=== PATIENT | female | born 1945 | race Caucasian/White ===

== ENCOUNTER 2016-12-20 10:25 | Outpatient (CLI) | payer MEDICARE, OTHER | END 2016-12-20 10:26 | disposition home or self-care (01) | DX: K75.4 Autoimmune hepatitis (principal) ==

== ENCOUNTER 2017-01-03 07:53 | Outpatient (CLI) | payer MEDICARE, OTHER ==
--- NOTE | 2017-01-03 17:09 | Ultrasound Report ---
LIMITED ABDOMINAL ULTRASOUND: 01/03/2017 CLINICAL HISTORY: A 71-year-old female with autoimmune hepatitis and abdominal pain. TECHNIQUE: Real-time scanning was performed with medical sales representative static images obtained. FINDINGS: The liver appears reduced in size with the length of 11.5 cm. Liver parenchymal pattern is coarsened. This type of parenchymal pattern can be seen with cirrhosis or hepatitis. The portal vein showed normal hepatopetal flow. The gallbladder demonstrated no significant wall thickening. There are some small calculi within the neck of the gallbladder. These appear to be mobile with shadowing. They measure 1 to 3 mm in diameter . The common bile duct is 2.3 mm and normal in size. The right kidney measures 10 cm in length without pyelocaliceal system dilatation. A benign cyst is noted extending from the anterior half of the lower part of the right kidney measuring 1.2 cm. IMPRESSION: 1. ABNORMAL LIVER IS NOTED WITH REDUCED SIZE AND A PARENCHYMAL PATTERN CONSISTENT WITH CIRRHOSIS OR H EPATITIS. 2. CHOLELITHIASIS IS NOTED WITH SEVERAL SMALL MOBILE CALCULI NOTED IN THE NECK OF THE GALLBLADDER. 3. AN 1.2 CM CYST IS NOTED IN THE RIGHT KIDNEY. JOB #: [id number] EXT JOB #:[id number]
== END 2017-01-03 07:54 | disposition home or self-care (01) ==
LOC: DI 07:53
PROVIDERS: ATTEND Internal Medicine
DX: K75.4 Autoimmune hepatitis (principal); K80.20 Calculus of gallbladder without cholecystitis without obstruction; N28.1 Cyst of kidney, acquired
CPT/HCPCS: 76705

== ENCOUNTER 2018-09-17 08:00 | Outpatient (CLI) | payer MEDICARE, OTHER ==
[2018-09-17] MEDS ORDERED: GADOBUTROL 10 MMOL/10 ML VIAL IVP ONE ×2 (11:47)
--- NOTE | 2018-09-17 14:11 | MRI Report ---
Reason: VERTIGO, FACIAL PARESTHESIA, VISION CHANGES, TINNI Procedure Date: 09/17/2018 Accession Number: [id number] / [id number] Procedure: MRI - Brain W/WO CPT Code: FULL RESULT: EXAM: MRI BRAIN AND INTERNAL AUDITORY CANAL (IAC),WITHOUT AND WITH CONTRAST. EXAM DATE: 09/17/2018 11:38 AM. CLINICAL HISTORY: 73-year-old female. VERTIGO, FACIAL PARESTHESIA, VISION CHANGES, TINNITUS. COMPARISON: None. TECHNIQUE: Multiplanar, multisequence T1-weighted and fluid-sensitive MRI sequences of the brain and IACs were performed. Other: None. IV Contrast: 9 ML Gadavist. FINDINGS: Brain Volume: Normal for age. Parenchyma/Dura: No acute hemorrhage, mass, or acute infarct. Scattered T2/FLAIR hyperintense periventricular, deep, and subcortical white matter lesions within cerebral hemispheres bilaterally. No abnormal enhancement. No parenchymal foci susceptibility artifact Internal Auditory Canals (IACs): Normal. No cranial nerve lesion or inflammatory process identified. The inner ear structure are symmetric and unremarkable. Ventricles/Cisterns: No hydrocephalus. No abnormal extra-axial fluid collection or hemorrhage. Orbits: Symmetric and unremarkable. Sella Turcica: The pituitary gland, cavernous sinuses, suprasellar cistern and optic chiasm are unremarkable. Vasculature: Normal signal flow void is seen in the major arterial structures at the skull base. The dural sinuses are patent and enhance normally. Sinuses: Small mucus retention cyst/polyp right maxillary sinus. The remaining paranasal sinuses are clear. Bones: No focal pathologic appearing marrow signal changes. Other: None. IMPRESSION: 1. No evidence of retrocochlear pathology. The cerebellopontine angles bilaterally, the internal auditory canals bilaterally, the cochleas bilaterally, and the vestibular apparatuses bilaterally are unremarkable. No associated abnormal enhancement. 2. No MRI evidence of acute intracranial abnormality. Specifically, no evidence of acute or subacute infarct, acute intracranial hemorrhage, mass, midline shift, or hydrocephalus. No abnormal intracranial enhancement. 3. Scattered T2/FLAIR hyperintense periventricular, deep, and subcortical white matter lesions within cerebral hemispheres bilaterally. These lesions are nonspecific, and can be seen with the entire gamut of white matter conditions, commonly as sequela of chronic microangiopathy. RADIA
== END 2018-09-17 08:01 | disposition home or self-care (01) ==
LOC: LAB 08:00
PROVIDERS: ATTEND Physician Assistant
DX: R42 Dizziness and giddiness (principal); H53.9 Unspecified visual disturbance; H93.19 Tinnitus, unspecified ear; R20.2 Paresthesia of skin; R90.89 Other abnormal findings on diagnostic imaging of central nervous system; K75.4 Autoimmune hepatitis; K80.20 Calculus of gallbladder without cholecystitis without obstruction
CPT/HCPCS: 36415; 70553; 82565

== ENCOUNTER 2018-10-03 09:18 | Outpatient (CLI) | payer MEDICARE, OTHER | END 2018-10-03 09:19 | disposition home or self-care (01) | LOC: DI 09:18 | PROVIDERS: ATTEND Specialist | DX: K75.4 Autoimmune hepatitis (principal); R42 Dizziness and giddiness; I10 Essential (primary) hypertension; R10.11 Right upper quadrant pain | CPT/HCPCS: 93306 ==

== ENCOUNTER 2019-02-26 07:37 | Outpatient (CLI) | payer MEDICARE, OTHER ==
[2019-02-26 09:09] LABS: CREATININE 0.9 mg/dL (0.4-1.0)
[2019-02-26] MEDS ORDERED: IOVERSOL 320 100 ML VIAL IVP ONE ×2 (09:46→14:47)
--- NOTE | 2019-02-26 11:25 | CT Report ---
Reason: AUTOIMMUNE HEPATITIS Procedure Date: 02/26/2019 Accession Number: [id number] / [id number] Procedure: CT - Abdomen/Pelvis W CPT Code: FULL RESULT: EXAM: CT ABDOMEN AND PELVIS EXAM DATE: 02/26/2019 09:49 AM. CLINICAL HISTORY: Autoimmune hepatitis. COMPARISONS: ABDOMEN/PELVIS W/ 10/11/2015 2:14 PM. TECHNIQUE: Routine helical CT imaging was performed through the abdomen and pelvis. IV contrast: OPTIRAY 320 100 mL. Enteric contrast: No. Reconstructions: Coronal and sagittal. In accordance with CT protocol optimization, one or more of the following dose reduction techniques were utilized for this exam: automated exposure control, adjustment of mA and/or KV based on patient size, or use of iterative reconstructive technique. FINDINGS: Lung Bases: Unremarkable. Liver: Liver contour is mildly lobulated. Gallbladder/Bile Ducts: Cholelithiasis without cholecystitis. Spleen: Subjectively, splenic volume is top normal, 11.1 x 7.6 cm as seen coronally on image 36 series 5. Pancreas: Normal. Adrenal Glands: Normal. Kidneys: Normal. No masses or hydronephrosis. Peritoneal Cavity/Bowel: There is no bowel obstruction, free fluid or free air. There is no lymphadenopathy by size criteria. There is extensive diverticulosis predominantly in the sigmoid colonic distribution. The appendix is well visualized and normal, retrocecal location. Pelvic Organs: Normal. The bladder and visualized pelvic organs are within normal limits. Vasculature: Atherosclerosis without an abdominal aortic aneurysm. Bones: Superior endplate fracture/Schmorl's node at T11. No aggressive osseous lesions. Other: None. IMPRESSION: Mildly nodular-appearing liver contour and a top normal splenic size. RADIA
[2019-02-26] MEDS ORDERED: IOVERSOL 320 50 ML VIAL PO ONE (14:47)
== END 2019-02-26 07:38 | disposition home or self-care (01) ==
LOC: DI 07:37
PROVIDERS: ATTEND Specialist
DX: K75.4 Autoimmune hepatitis (principal)
CPT/HCPCS: 36415; 74177; 82565; Q9967

== ENCOUNTER 2020-12-05 09:32 | Emergency (ER) | payer MEDICARE, OTHER ==
--- OUTSIDE RECORDS SUMMARY | 2020-12-05 10:19 | EXTERNAL MEDICAL SUMMARY RPT | Continuity of Care Document ---
:1945 Demographics Phone Unavailable Preferred Language Unknown Marital Status Unknown Bahai Affiliation Unknown Race Unknown Ethnic Group Unknown Author Organization [facility] Address [address] [phone] Phone Social History date description facility [phone]
[2020-12-05] MEDS ORDERED: HYDROmorphone 1 MG/ML CARPUJECT IVP STA ×2 (10:20→13:21)
[2020-12-05] MEDS ORDERED: KETOROLAC 15 MG/ML VIAL IVP STA (10:20)
--- NOTE | 2020-12-05 10:22 | ED Physician Documentation ---
PD HPI BACK PAIN - Stated complaint Stated Complaint: RT SIDE BACK PX - Chief complaint Chief Complaint: Back Pain - History obtained from History obtained from: Patient, Family - History of Present Illness Timing - onset: How many weeks ago (several) Timing - duration: Weeks Timing - details: Gradual onset, Still present (worse the past week), Waxing and waning Location: Mid, Lower, Right Quality: Pain, Aching Associated symptoms: Other (denies rash during this). No: Fever, Weakness, Numbness Contributing factors: Trauma (she says she had a slight slip and near fall 3-4 weeks ago but did not feel pain with that necessarily.). No: Lifting, Twisting Similar symptoms before: Has not had sx before Recently seen: Not recently seen Review of Systems Constitutional: denies: Fever, Chills Nose: denies: Rhinorrhea / runny nose, Congestion Throat: denies: Sore throat Respiratory: denies: Cough GI: reports: Abdominal Pain (some in RUQ area, not related to eating. Has history of immune hepatitis, but that has been dormant for several years.). denies: Nausea, Vomiting Skin: denies: Rash, Lesions Musculoskeletal: reports: Back pain. denies: Neck pain Neurologic: denies: Focal weakness, Numbness PD PAST MEDICAL HISTORY - Past Medical History Cardiovascular: Hypertension Respiratory: None Neuro: None Endocrine/Autoimmune: None GI: Hepatitis (immune related, and has been dormant for few years. No recent eval by GI. ) - Past Surgical History Past Surgical History: Yes Ortho: ACL reconstruction - Present Medications Home Medications: Ambulatory Orders Medication Instructions Recorded Confirmed azaTHIOprine [Azathioprine] 100 mg PO DAILY 04/10/16 12/05/20 Morphine Ir [Ms Ir] 15 mg PO Q8H PRN #20 tablet 12/05/20 dexAMETHasone [Decadron] 4 mg PO DAILY #7 tablet 12/05/20 traZODone [Desyrel] 50 mg PO QPM 12/05/20 12/05/20 - Allergies Allergies/Adverse Reactions: Allergies Allergy/AdvReac Type Severity Reaction Status Date / Time No Known Drug Allergies Allergy Verified 12/05/20 09:45 - Social History Does the pt smoke?: No Smoking Status: Never smoker Does the pt drink ETOH?: No Does the pt have substance abuse?: No - POLST Patient has POLST: No PD ED PE NORMAL - Vitals Vital signs reviewed: Yes - General General: Alert and oriented X 3, Well developed/nourished, Other (seems uncomfortable with leaning forward. ) - Neck Neck: Supple, no meningeal sign, No bony TTP, No adenopathy - Cardiac Cardiac: RRR, No murmur - Respiratory Respiratory: Clear bilaterally - Abdomen Abdomen: Normal bowel sounds, Soft, Non distended, Other (some tenderness RUQ in liver area.) - Back Back: No CVA TTP - Derm Derm: Normal color, Warm and dry - Extremities Extremities: No tenderness to palpate, Normal ROM s pain, No edema, No calf tenderness / cord - Neuro Neuro: Alert and oriented X 3, No motor deficit, Normal speech Results - Vitals Vitals: Vital Signs - 24 hr 12/05/20 12/05/20 12/05/20 09:42 11:50 12:45 Temperature 36.6 C Heart Rate 64 60 60 Respiratory 19 20 20 Rate Blood Pressure 146/69 H 142/62 H 168/84 H O2 Saturation 99 100 100 12/05/20 14:34 Temperature 36.5 C Heart Rate 58 L Respiratory 19 Rate Blood Pressure 168/77 H O2 Saturation 100 Oxygen O2 Source Room air - Labs Labs: Laboratory Tests 12/05/20 12/05/20 12/05/20 10:20 10:20 11:46 WBC 3.2 L RBC 3.14 L Hgb 10.7 L Hct 31.1 L MCV 99.0 MCH 34.1 H MCHC 34.4 RDW 14.4 Plt Count 189 MPV 9.5 Neut # (Auto) 2.0 Lymph # (Auto) 0.8 L [place] # (Auto) 0.2 Eos # (Auto) 0.1 Baso # (Auto) 0.0 Absolute Nucleated RBC 0.00 Nucleated RBC % 0.0 Sodium 141 Potassium 4.0 Chloride 111 Carbon Dioxide 23 Anion Gap 7.0 BUN 18 Creatinine 0.9 Estimated GFR (MDRD) 61 L Glucose 96 Calcium 9.8 Total Bilirubin 0.7 AST 30 ALT 14 Alkaline Phosphatase 117 Total Protein 6.9 Albumin 3.7 Globulin 3.2 Albumin/Globulin Ratio 1.2 Lipase 35 Urine Color DARK YELLOW Urine Clarity CLEAR Urine pH 6.0 Ur Specific [place] 1.025 Urine Protein NEGATIVE Urine Glucose (UA) NEGATIVE Urine Ketones TRACE Urine Occult Blood NEGATIVE Urine Nitrite NEGATIVE Urine Bilirubin NEGATIVE Urine Urobilinogen 1 (NORMAL) Ur Leukocyte Esterase NEGATIVE Ur Microscopic Review NOT INDICATED Urine Culture Comments NOT INDICATED - Rads (name of study) abd/pelvic CT Radiology: Prelim report reviewed (lung mets/mass, liver mets, spinous mets. No fractures. ), See rad report PD MEDICAL DECISION MAKING - ED course Complexity details: reviewed results (CT showing spine mets, liver mets and lung mets/nodes, with one lung spot a bit larger that might be primary. ), considered differential (she says she might have had a fall 3-4 weeks ago but does not remember back hurting with that. Has had pain with movement. No LE neuro symptoms. There is some abd tenderness as well. So will get CT to eval spine as well as abd cavity/kidneys/etc.), d/w patient, d/w family, d/w life skills consultant (Initial talk with radiologist about the mets findings and we discussed adding chest CT to better evaluate for primary and include breasts too, as could be possible source. He felt it okay to do chest with contrast right now given the patient Cr/GFR.) ED course: ordered the Chest CT after discussion with reporting Radiologist, who felt this was okay at this point. However, in house Radiologist Dr Bucio, felt it would not be advised to give second dye dose in same day. So deferred the CT. The patient and family understood the reasoning and were okay with the change of plan (I had already talked about adding the chest CT with them). Departure - Departure Disposition: 01 Home, Self Care Clinical Impression: Metastatic cancer to spine Lower back pain Qualifiers: Chronicity: acute Back pain laterality: unspecified Sciatica presence: without sciatica Qualified Code(s): M54.5 - Low back pain Condition: Stable Record reviewed to determine appropriate education?: Yes Instructions: ED Low Back Pain Injury Follow-Up: Eric Huertas MD [Primary Care Provider] - Prescriptions: dexAMETHasone [Decadron] 4 mg PO DAILY #7 tablet Morphine Ir [Ms Ir] 15 mg PO Q8H PRN #20 tablet PRN Reason: Pain Comments: The CT scan was showing a likely lung tumor with metastatic lesions in the lower lung, liver and spine. Your back pain seems to be coming from bone metastases. There are no fractures seen. I would suggest some anti-inflammatory of Decadron daily for the next week. Add Tylenol 500 mg 4 times a day for the next week. Your current liver function tests are normal and this should be okay. To this add morphine tablet half to 1 tablet every 8 hours if needed for pain. Follow-up with Dr. Huertas your primary care for referral presumably to oncology for further work-up and evaluation of the tumor and lesions. Discharge Date/Time: 12/05/20 14:43
[2020-12-05] MEDS ORDERED: IOPAMIDOL-300 100 ML VIAL ONE (10:26)
[2020-12-05 10:40] LABS: BASOPHILS % (AUTO) 1.2 %; EOSINOPHILS # (AUTO) 0.1 10^3/uL (0.0-0.7); EOSINOPHILS % (AUTO) 1.9 %; HCT - HEMATOCRIT 31.1 % (37.0-47.0); HGB - HEMOGLOBIN 10.7 g/dL (12.0-16.0); LYMPHOCYTES # (AUTO) 0.8 10^3/uL (1.5-3.5); LYMPHOCYTES % (AUTO) 25.9 %; MEAN CORPUSCULAR HEMOGLOBIN 34.1 pg (27.0-31.0); MEAN CORPUSCULAR HGB CONC 34.4 g/dL (32.0-36.0); MEAN PLATELET VOLUME 9.5 fL (7.9-10.8); MONOCYTES # (AUTO) 0.2 10^3/uL (0.0-1.0); MONOCYTES % (AUTO) 7.5 %; NEUTROPHILS % (AUTO) 63.2 %; PLT - PLATELET COUNT 189 10^3/uL (130-450); RED BLOOD COUNT 3.14 10^6/uL (4.20-5.40); RED CELL DISTRIBUTION WIDTH 14.4 % (12.0-15.0); WHITE BLOOD COUNT 3.2 x10^3/uL (4.8-10.8)
[2020-12-05 10:56] LABS: ALBUMIN 3.7 g/dL (3.2-5.5); ALBUMIN/GLOBULIN RATIO 1.2 (1.0-2.2); BILIRUBIN,TOTAL 0.7 mg/dL (0.2-1.0); CALCIUM 9.8 mg/dL (8.5-10.3); CREATININE 0.9 mg/dL (0.4-1.0); TOTAL PROTEIN 6.9 g/dL (6.7-8.2)
[2020-12-05 11:54] LABS: BILIRUBIN,URINE NEGATIVE (NEGATIVE); GLUCOSE, URINE (UA) NEGATIVE (NEGATIVE); KETONES,URINE (UA) TRACE mg/dL (NEGATIVE); LEUKOCYTE ESTERASE, URINE NEGATIVE (NEGATIVE); NITRITE,URINE NEGATIVE (NEGATIVE); OCCULT BLOOD,URINE NEGATIVE (NEGATIVE); PROTEIN,URINE NEGATIVE (NEGATIVE); UROBILINOGEN,URINE 1 (NORMAL) E.U./dL (NORMAL)
[2020-12-05 11:58] LABS: CLARITY,URINE CLEAR (CLEAR)
--- NOTE | 2020-12-05 13:01 | CT Report ---
PROCEDURE: Abdomen/Pelvis W INDICATIONS: Abdominal pain, acute, nonlocalized CONTRAST: IV CONTRAST: Isovue 300 ml: 100 PO CONTRAST: *NO PO CONTRAST TECHNIQUE: After the administration of intravenous contrast, 5 mm thick sections acquired from the diaphragms to the symphysis. 5 mm thick coronal and sagittal reformats were acquired. For radiation dose reducti on, the following was used: automated exposure control, adjustment of mA and/or kV according to el ent size. COMPARISON: CT abdomen and pelvis 02/26/2019. FINDINGS: Image quality: Excellent. ABDOMEN: Lung bases: Multiple pulmonary nodules at the lung bases. For example: -Right middle lobe spiculated pulmonary nodule measuring 1.8 x 1.8 cm, (3/1), partially visualized. -Right lower lobe medial rounded pulmonary nodule measuring 0.6 cm, (3/11). -Left upper lobe inferior subpleural pulmonary nodule measuring 0.5 cm, (3/1). Right hilar lymph node measuring 2.8 x 1.7 cm, (3/3). No pleural effusion. Heart size is normal. Mild aortic valvular calcification. Small hiatal hernia. Solid organs: Multiple hypodense hepatic lesions. For example: -Segment 7 and a 1.6 x 1.3 cm, (3). -Segment 5 inferior 3.7 x 3.2 cm, (11/03). Gallbladder is not distended. Small calcified gallstones. Biliary system is non dilated. Pancreas e nhances normally. No splenomegaly. Punctate hypodensity in the spleen, (3/). Right adrenal mass mckinley suring 3.9 x 3.3 cm, (11/01). Kidneys demonstrate normal size and enhancement, without hydronephrosis. Small simple cyst in the left kidney superior pole measuring 1.7 cm and slightly increased in size c ompared to 2019. Peritoneum and bowel: Bowel loops demonstrate normal wall thickness and caliber. Diverticulosis. No rmal appendix. No free fluid or air. Nodes and vessels: Intra-aortocaval retroperitoneal bulky adenopathy. For example node measuring 2.1 cm short axis diameter, (11/07). No abdominal aortic aneurysm. Severe atherosclerotic plaque. Recannul ization of the umbilical vein. The portal vein is patent. Miscellaneous: No ventral hernias. PELVIS: Genitourinary: Bladder is decompressed. Vertically oriented uterus. No free fluid. Miscellaneous: No inguinal hernias. Bones: Sclerotic foci at S1, left ilium. No vertebral body compression fractures. T11 Schmorl's node . IMPRESSION: 1. Metastatic disease of uncertain origin. 2. Multiple pulmonary nodules. Right middle lobe spiculated nodule measuring 1.8 cm. Right hilar irving opathy. -Recommend CT of the chest for further evaluation. 3. Multiple hypodense hepatic lesions. Segment 5 measuring 3.7 cm. 4. Metastatic right adrenal mass. Bulky retroperitoneal adenopathy. 5. Sclerotic osseous foci in the pelvis suspicious for metastatic disease. -Consider bone scan for further evaluation. 6. Cholelithiasis. Results were communicated to Dr. Fenton at 12/05/2020 12:56 PM PDT. Reviewed by: Dannie Camp MD on 12/05/2020 1:00 PM PDT Approved by: Dannie Camp MD on 12/05/2020 1:00 PM PDT Station ID: [id number]
[2020-12-05] MEDS ORDERED: IOPAMIDOL-300 100 ML VIAL IVP ONE (14:04)
[2020-12-05 14:34] VITALS: BP 168/77
== END 2020-12-05 14:43 | disposition home or self-care (01) ==
LOC: ED 09:32
DX: C79.51 Secondary malignant neoplasm of bone (principal); R91.8 Other nonspecific abnormal finding of lung field; I10 Essential (primary) hypertension
CPT/HCPCS: 36415; 74177; 80053; 81003; 83690; 85025; 96374; 96375; 96376; 99284; J1170; Q9967; 81001; 87086

== ENCOUNTER 2020-12-06 19:28 | Observation (INO) | payer MEDICARE, OTHER ==
--- OUTSIDE RECORDS SUMMARY | 2020-12-06 19:32 | EXTERNAL MEDICAL SUMMARY RPT | Continuity of Care Document ---
:1945 Demographics Phone Unavailable Preferred Language Unknown Marital Status Unknown Religion Affiliation Unknown Race Unknown Ethnic Group Unknown Author Organization [facility] Address [address] [phone] Phone Social History date description facility [phone]
--- OUTSIDE RECORDS SUMMARY | 2020-12-06 19:55 | EXTERNAL MEDICAL SUMMARY RPT | Continuity of Care Document ---
:1945 Demographics Phone Unavailable Preferred Language Unknown Marital Status Unknown Samaritan Affiliation Unknown Race Unknown Ethnic Group Unknown Author Organization [facility] Address [address] [phone] Phone Social History date description facility [phone]
[2020-12-06 21:19] LABS: BASOPHILS % (AUTO) 0.6 %; EOSINOPHILS % (AUTO) 0.3 %; HCT - HEMATOCRIT 30.4 % (37.0-47.0); HGB - HEMOGLOBIN 10.1 g/dL (12.0-16.0); LYMPHOCYTES # (AUTO) 0.2 10^3/uL (1.5-3.5); LYMPHOCYTES % (AUTO) 7.3 %; MEAN CORPUSCULAR HEMOGLOBIN 32.7 pg (27.0-31.0); MEAN CORPUSCULAR HGB CONC 33.2 g/dL (32.0-36.0); MEAN CORPUSCULAR VOLUME 98.4 fL (81.0-99.0); MEAN PLATELET VOLUME 9.5 fL (7.9-10.8); MONOCYTES # (AUTO) 0.1 10^3/uL (0.0-1.0); MONOCYTES % (AUTO) 1.9 %; NEUTROPHILS # (AUTO) 2.8 10^3/uL (1.5-6.6); NEUTROPHILS % (AUTO) 88.9 %; PLT - PLATELET COUNT 191 10^3/uL (130-450); RED BLOOD COUNT 3.09 10^6/uL (4.20-5.40); RED CELL DISTRIBUTION WIDTH 14.2 % (12.0-15.0); WHITE BLOOD COUNT 3.2 x10^3/uL (4.8-10.8)
--- NOTE | 2020-12-06 21:25 | XRAY Report ---
PROCEDURE: Chest 1 View X-Ray INDICATIONS: Chest Pain TECHNIQUE: One view of the chest was acquired. COMPARISON: None. FINDINGS: Surgical changes and devices: None. Lungs and pleura: No pleural effusions or pneumothorax. Scattered subsegmental scarring/atelectasis . No acute consolidation. Mediastinum: Mediastinal contours appear normal. Heart size is normal. Bones and chest wall: No suspicious bony lesions. Overlying soft tissues appear unremarkable. IMPRESSION: Scattered subsegmental scarring/atelectasis. No acute consolidation. Reviewed by: Yoseph Bhatti MD on 12/06/2020 9:23 PM PDT Approved by: Yoseph Bhatti MD on 12/06/2020 9:23 PM PDT Station ID: [id number]
[2020-12-06 21:34] LABS: ALBUMIN 3.9 g/dL (3.2-5.5); ALBUMIN/GLOBULIN RATIO 1.1 (1.0-2.2); BILIRUBIN,TOTAL 0.8 mg/dL (0.2-1.0); CALCIUM 9.8 mg/dL (8.5-10.3); CREATININE 0.8 mg/dL (0.4-1.0); POTASSIUM 4.2 mmol/L (3.5-5.0); TOTAL PROTEIN 7.4 g/dL (6.7-8.2)
--- NOTE | 2020-12-06 22:06 | ED Physician Documentation ---
History of Present Illness - Stated complaint Stated Complaint: DIZZY,VOMITING - Chief complaint Chief Complaint: Heent - History obtained from History obtained from: Patient, Family (son) - History of Present Illness Timing: Other (various time frames (see narrative below)) Pain level max: 8 Pain level now: 6 Improved by: rest Worsened by: movement (back pain) Associated symptoms: nausea, vomiting - Additonal information Additional information: patient c/o midline low back pain. She says this has been going on for approximately 4 months, no injury, initially episodic but over past 3-4 weeks becoming constant and progressive in intensity, severe for past week. She was evaluated in this ED yesterday for back pain and unfortunately had findings on CT A/P suggestive of "metastatic disease of uncertain origin" (per radiologist's reading) with multiple pulmonary nodules, multiple hepatic lesions, metastatic right adrenal mass, bulky retroperitoneal adenopathy, and bony lesions "suspicious for metastatic disease". Patient has no known h/o malignancy. She also c/o months of dizziness but also worse over past week. She developed n/v since d/c yesterday. She was prescribed PO morphine and decadron but her pain has not been controlled with these measures. Review of Systems Constitutional: reports: Reviewed and negative Eyes: reports: Reviewed and negative Ears: reports: Reviewed and negative Nose: reports: Reviewed and negative Throat: reports: Reviewed and negative Cardiac: reports: Reviewed and negative Respiratory: reports: Reviewed and negative GI: reports: Abdominal Pain, Nausea, Vomiting. denies: Constipation, Diarrhea, Hematemesis, Bloody / black stool : denies: Unable to Void, Incontinent Musculoskeletal: reports: Back pain. denies: Neck pain Neurologic: reports: Headache (mild). denies: Generalized weakness, Focal weakness, Numbness, Confused, Altered mental status PD PAST MEDICAL HISTORY - Past Medical History Past Medical History: Yes Cardiovascular: Hypertension Respiratory: None Neuro: None, Dementia Endocrine/Autoimmune: None GI: Hepatitis - Past Surgical History Past Surgical History: Yes Ortho: ACL reconstruction - Present Medications Home Medications: Ambulatory Orders Medication Instructions Recorded Confirmed azaTHIOprine [Azathioprine] 100 mg PO DAILY 04/10/16 12/05/20 Morphine Ir [Ms Ir] 15 mg PO Q8H PRN #20 tablet 12/05/20 12/06/20 dexAMETHasone [Decadron] 4 mg PO DAILY #7 tablet 12/05/20 12/06/20 traZODone [Desyrel] 50 mg PO QPM 12/05/20 12/05/20 - Allergies Allergies/Adverse Reactions: Allergies Allergy/AdvReac Type Severity Reaction Status Date / Time No Known Drug Allergies Allergy Verified 12/06/20 19:46 - Social History Does the pt smoke?: No Smoking Status: Never smoker Does the pt drink ETOH?: No Does the pt have substance abuse?: No - Immunizations Immunizations are current?: Yes - POLST Patient has POLST: No PD ED PE NORMAL - Vitals Vital signs reviewed: Yes - General General: Alert and oriented X 3, Well developed/nourished, Other (obvious painful distress worse with movement involving her back (sitting up for lung auscultation causes her to cry due to the pain)) - HEENT HEENT: Other (tacky mucous membranes) - Neck Neck: Supple, no meningeal sign - Cardiac Cardiac: RRR - Respiratory Respiratory: No respiratory distress, Clear bilaterally - Abdomen Abdomen: Soft, Non distended, Other (TTP across upper abdomen) - Back Back: Other (TTP midline lower back) - Derm Derm: Normal color, Warm and dry, No rash - Extremities Extremities: No edema - Neuro Neuro: Alert and oriented X 3 PD ED PE EXPANDED - Cardiac Cardiac: Murmur Present (3/6 HILDA right 2nd ICS) Results - Vitals Vitals: Vital Signs - 24 hr 12/06/20 12/06/20 12/06/20 19:39 20:32 22:16 Temperature 35.8 C L Heart Rate 72 68 74 Respiratory 17 23 16 Rate Blood Pressure 168/69 H 151/77 H 151/65 H O2 Saturation 98 93 97 Oxygen O2 Source Room air - Labs Labs: Laboratory Tests 12/06/20 12/06/20 12/06/20 21:03 21:03 21:03 WBC 3.2 L RBC 3.09 L Hgb 10.1 L Hct 30.4 L MCV 98.4 MCH 32.7 H MCHC 33.2 RDW 14.2 Plt Count 191 MPV 9.5 Neut # (Auto) 2.8 Lymph # (Auto) 0.2 L [place] # (Auto) 0.1 Eos # (Auto) 0.0 Baso # (Auto) 0.0 Absolute Nucleated RBC 0.00 Nucleated RBC % 0.0 Sodium 134 L Potassium 4.2 Chloride 104 Carbon Dioxide 22 Anion Gap 8.0 BUN 18 Creatinine 0.8 Estimated GFR (MDRD) 70 L Glucose 141 H Calcium 9.8 Total Bilirubin 0.8 AST 29 ALT 14 Alkaline Phosphatase 118 Troponin I High Sens 4.8 Total Protein 7.4 Albumin 3.9 Globulin 3.5 Albumin/Globulin Ratio 1.1 Lipase 70 H - Rads (name of study) CT head Radiology: Prelim report reviewed, See rad report chest xray Radiology: Prelim report reviewed, See rad report PD MEDICAL DECISION MAKING - ED course Complexity details: reviewed old records, reviewed results, re-evaluated patient, considered differential, d/w patient, d/w family ED course: patient presents with severe lower back pain uncontrolled with the prescribed PO morphine (and decadron) provided from this ED yesterday after CT A/P revealed metastatic disease (see above). she also says she has had n/v all day with poor appetite, difficulty keeping fluids down. She had improvement in n/v after IV zofran but she only had partial and brief pain control with IV dilaudid. She would benefit from further testing (regarding what appears to be metastatic lesions to liver, adrenal gland, and bony pelvis) and treatment (particularly pain control) in the inpatient setting. Dr. 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
[2020-12-06] MEDS ORDERED: ONDANSETRON 4 MG/2 ML VIAL IVP STA (22:24)
[2020-12-06] MEDS ORDERED: SODIUM CHLORIDE 0.9% 1,000 ML IV STA (22:24)
[2020-12-06] MEDS ORDERED: HYDROmorphone 1 MG/ML CARPUJECT IVP STA ×4 (22:24→23:49)
[2020-12-07] MEDS ORDERED: HYDROmorphone 0.5 MG/0.5 ML SYRINGE IVP PRN (00:47)
[2020-12-07] MEDS ORDERED: SODIUM CHLORIDE FLUSH 0.9% 10 ML SYRINGE IVP PRN (00:47)
[2020-12-07] MEDS ORDERED: ONDANSETRON 4 MG/2 ML VIAL IVP PRN (00:47)
[2020-12-07] MEDS ORDERED: methocarbamoL 500 MG TABLET PO PRN (00:50)
[2020-12-07] MEDS ORDERED: KETOROLAC 30 MG/ML VIAL IVP STA (00:50)
[2020-12-07] MEDS ORDERED: methocarbamoL 500 MG TABLET PO STA (00:50)
--- NOTE | 2020-12-07 00:57 | HISTORY & PHYSICAL EXAMINATION ---
Chief Complaint - Chief Complaint Chief Complaint: Back pain History of Present Illness - Admitted From Admitted From:: Home - History Obtained From Records Reviewed: Yes History obtained from: Pation, Son, ER Physician, EMR - History of Present Illness HPI Comment/Other: This is a very pleasant 75-year-old female with a past medical history signifi cant for autoimmune hepatitis who presents today complaining of worsening back pain. She states that been present for the past few months but has progressed over the past month and even more so over the past 2 weeks where she has had limited to her physical activity due to the severity of her pain. It is an 8 out of 10 and located over the right lower back. She reports occasional numbness in both of her feet. She states her pain is relieved by standing straight but is worse with any movement. She denies any urinary or bowel symptoms. She reports no dysuria, urgency, frequency. She was seen in the emergency department yesterday for similar symptoms and she underwent a CT of the abdomen and pelvis which was concerning for metastatic disease with involvement of the liver, adrenal gland, and a sclerotic lesion in the left pelvis. She was discharged on morphine and decadron. She states despite taking the medication, she still has significant pain and her son encouraged her to come back to the emergency department today because of its severity. She also reports today she was nauseous and had 3-4 episodes of nonbloody emesis. She denies any abdominal pain. Her son tells me that she has had limited p.o. intake over the past 3 days due to no appetite. She denies any weight loss, cough. She did smoke a pack a day for about 20 years but quit over 15 years ago. She has a sister who had lung cancer and she was also a smoker. In the emergency department, she received multiple doses of IV Dilaudid but despite this, she is still in significant pain and is unable to ambulate whatsoever. Given the above findings, medicine was consulted for admission. I did discuss goals of care with the patient and her son who who is her power of deputy county attorney. She would like to be a DNR. History - Past Medical History Respiratory: reports: None Neuro: reports: Dementia Endocrine/Autoimmune: reports: None GI: reports: Hepatitis (Autoimmune.) MRSA Hx?: No - Past Surgical History Ortho: reports: ACL reconstruction - Family & Social History Family History: Mother: , Father: Family History Comment/Other: Her father in a motor boat accident. Her mother at 86 from old age. She had a sister who had lung cancer. She was a smoker. - POLST Patient has POLST: No Meds/Allgy - Home Medications Home Medications: Ambulatory Orders Medication Instructions Recorded Confirmed azaTHIOprine [Azathioprine] 100 mg PO DAILY 04/10/16 12/05/20 Morphine Ir [Ms Ir] 15 mg PO Q8H PRN #20 tablet 12/05/20 12/06/20 dexAMETHasone [Decadron] 4 mg PO DAILY #7 tablet 12/05/20 12/06/20 traZODone [Desyrel] 50 mg PO QPM 12/05/20 12/05/20 - Allergies Allergies/Adverse Reactions: Allergies Allergy/AdvReac Type Severity Reaction Status Date / Time No Known Drug Allergies Allergy Verified 12/06/20 19:46 Review of Systems - Constitutional Constitutional: reports: Poor appetite. denies: Fever, Chills, Weakness, Weight loss - Eyes Eyes: reports: Blurred vision. denies: Field loss, Vision loss, Dipolpia - Ears, Nose & Throat Ears, Nose & Throat: denies: Nasal discharge, Sore throat - Cardiovascular Cariovascular: denies: Chest pain, Edema, Exertional dyspnea, Decr. exercise tolerance - Respiratory Respiratory: denies: Cough, Sputum production, SOB at rest, SOB with exertion - Gastrointestinal Gastrointestinal: reports: Nausea, Vomiting. denies: Abdominal pain, Constipation, Diarrhea, Change in bowel habits, Black stools, Bloody stools, Edison blood emesis - Genitourinary Genitourinary: denies: Dysuria, Frequency, Urgency, Hematuria - Musculoskeletal Musculoskeletal: reports: Back pain, Limited range of motion. denies: Muscle weakness - Neurological Neurological: reports: Headache. denies: General weakness, Focal weakness - Hematologic/Lymphatic Hematologic/Lymphatic: denies: Bleeding tendencies - All Other Systems All Other Systems: reports: Reviewed and negative Prior Level of Functionality: She is normally independent with her ADLs. Exam - Vital Signs Reviewed Vital Signs: Yes Vital Signs: Vital Signs x48h Temp Pulse Resp BP Pulse Ox 12/06/20 22:16 74 16 151/65 H 97 12/06/20 20:32 68 23 151/77 H 93 12/06/20 19:39 35.8 C L 72 17 168/69 H 98 - Physical Exam General Appearance: positive: Alert, Severe distress Eyes Bilateral: positive: Normal inspection, Conjunctivae nml ENT: positive: ENT inspection nml Neck: positive: Nml inspection Respiratory: positive: No respiratory distress. negative: Wheezes, Rales Cardiovascular: positive: Regular rate & rhythm, No murmur. negative: Tachycardia, Systolic murmur Abdomen: positive: Nml bowel sounds, No distention, Tenderness (Right upper quadrant tenderness.). negative: Guarding, Rebound Back: positive: Other (No obvious edema, erythema of the lumbar spine. She does have paraspinal tenderness bilaterally. No step-offs.) Skin: positive: Warm, Dry Extremities: positive: No pedal edema Neurologic/Psychiatric: positive: Other (She is able to move all 4 extremities. She has 5 out of 5 motor strength in her bilateral lower extremities. She has excellent dorsiflexion and plantar flexion. Sensation is intact in her lower extremities.). negative: Disoriented to person, Disoriented to place, Slurred/abnml speech Conclusion/Plan - Problem List (1) Severe lumbar pain Conclusion/Plan: She has significant lumbar pain and she is unable to ambulate due to the severity of her pain. Although she does have metastatic disease to the left pel vis, her pain is predominantly right-sided. I am concerned for metastatic disease as the cause of her back pain. She has no neurologic deficits at this time. Given the severity of her pain and the fact that she cannot ambulate, we will admit her for pain control and obtain further imaging with MRI. I have started her on Tylenol 1 g twice given her history of autoimmune hepatitis and we will also start her on Robaxin. We will continue Dilaudid 1 g every 2 hours. We will also trial a dose of Toradol. We will obtain an MRI of the lumbar spine with and without contrast for further evaluation given the severity of her pain and this new diagnosis of cancer. (2) Metastatic cancer Conclusion/Plan: CT of the abdomen pelvis obtained yesterday while in the emergency department was concerning for metastatic disease. Given her smoking history and the right lung finding, my concern is for a primary lung cancer with metastasis. It appears she has liver involvement as well as metastatic disease to the adrenal gland and the left pelvis. The patient and her son are aware of the concern for cancer. She did have a CT of the head today for evaluation given she complained of some dizziness and a slight headache. This did not reveal any acute abnormalities. She will need a CT of the chest but at this point in time, she will need contrast for the lumbar spine which is more of an acute issue. If she remains hospitalized for a few days then we can consider obtaining a CT of the chest otherwise this can be done on an outpatient basis. She will need follow-up with oncology and she was scheduled to see her primary care provider tomorrow for an oncology referral. (3) Autoimmune hepatitis Conclusion/Plan: Stable. She remains on azathioprine. (4) Pancytopenia Conclusion/Plan: This is chronic and stable. Her platelet count is actually now normal although she remains leukopenic and anemic. This is likely secondary to her azathioprine. She previously did follow with oncology here at the [facility]. (5) Dementia Conclusion/Plan: Her son tells me that she has been been suffering from dementia for the past year to year and a half. She has been unable to take care of her finances and he is her medical and financial power of deputy county attorney. - Lab Results Lab results reviewed: Yes Fish Bones: 12/06/20 21:03 12/06/20 21:03 - Diagnostic Imaging Results Diagnostic Imaging Results: positive: Prelim report reviewed Core Measures - Anticipated LOS I expect patient to be DC'd or transferred within 96 hours.: Yes - Issues Hospital Issues and Management Plan: 75-year-old female with a history of autoimmune hepatitis and a recent diagnosis of likely metastatic cancer presents with worsening severe lumbar spine pain. We will place her in observation for pain control and further imaging with MRI. - DVT/VTE - Prophylaxis VTE/DVT Device ordered at admit?: Yes VTE/DVT Prophylaxis med ordered at admit?: Yes
--- OUTSIDE RECORDS SUMMARY | 2020-12-07 01:09 | EXTERNAL MEDICAL SUMMARY RPT | Continuity of Care Document ---
:1945 Demographics Phone Unavailable Preferred Language Unknown Marital Status Unknown Taoist Affiliation Unknown Race Unknown Ethnic Group Unknown Author Organization [place] Address [address] [place] [address] Phone Social History date description facility [phone]
[2020-12-07] MEDS: SODIUM CHLORIDE FLUSH 0.9% 10 ML SYRINGE IVP SCH ×2 (01:37→09:08)
[2020-12-07 05:48] LABS: BASOPHILS % (AUTO) 0.3 %; HCT - HEMATOCRIT 28.5 % (37.0-47.0); HGB - HEMOGLOBIN 9.7 g/dL (12.0-16.0); LYMPHOCYTES # (AUTO) 0.4 10^3/uL (1.5-3.5); LYMPHOCYTES % (AUTO) 12.4 %; MEAN CORPUSCULAR HEMOGLOBIN 33.6 pg (27.0-31.0); MEAN CORPUSCULAR VOLUME 98.6 fL (81.0-99.0); MEAN PLATELET VOLUME 9.7 fL (7.9-10.8); MONOCYTES # (AUTO) 0.2 10^3/uL (0.0-1.0); MONOCYTES % (AUTO) 4.7 %; NEUTROPHILS # (AUTO) 2.7 10^3/uL (1.5-6.6); NEUTROPHILS % (AUTO) 81.1 %; PLT - PLATELET COUNT 187 10^3/uL (130-450); RED BLOOD COUNT 2.89 10^6/uL (4.20-5.40); WHITE BLOOD COUNT 3.4 x10^3/uL (4.8-10.8)
[2020-12-07] MEDS ORDERED: ACETAMINOPHEN 325 MG TABLET PO SCH ×2 (06:00→09:00)
[2020-12-07 06:01] LABS: CALCIUM 9.4 mg/dL (8.5-10.3); CREATININE 0.8 mg/dL (0.4-1.0); POTASSIUM 4.5 mmol/L (3.5-5.0)
--- NOTE | 2020-12-07 06:57 | CT Report ---
PROCEDURE: HEAD WO INDICATIONS: dizziness, DIAS TECHNIQUE: Noncontrast 4.5 mm thick angled axial sections acquired from the foramen magnum to the vertex. For r adiation dose reduction, the following was used: automated exposure control, adjustment of mA and/or kV according to patient size. COMPARISON: None FINDINGS: Image quality: Excellent. CSF spaces: Basal cisterns are patent. No extra-axial fluid collections. The ventricles are symmet ritesh in size and shape. Brain: No intracranial bleeds or masses. There is cerebral volume loss for age, with resultant vent ricular and sulcal prominence. There are periventricular and deep white matter chronic small vessel ischemic changes. There is intracranial internal carotid artery atherosclerosis. Skull and face: Calvarium and visualized facial bones appear intact, without suspicious lesions. Sinuses: Mild mucosal thickening noted in the right sphenoid sinus in the posterior right ethmoid air cells. The mastoids are clear. IMPRESSION: No acute intracranial disease process. Reviewed by: Erin Pro MD, PhD on 12/07/2020 6:55 AM PDT Approved by: Erin Pro MD, PhD on 12/07/2020 6:55 AM PDT Station ID: [id number]
[2020-12-07] MEDS ORDERED: GADOBUTROL 10 MMOL/10 ML VIAL ONE (07:46)
[2020-12-07] MEDS ORDERED: ACETAMINOPHEN 500 MG TABLET PO SCH (09:00)
[2020-12-07] MEDS ORDERED: ENOXAPARIN 40 MG/0.4 ML SYRINGE SUBQ SCH (09:00)
[2020-12-07] MEDS: oxyCODONE 5 MG TABLET PO PRN ×2 (09:05→13:42)
[2020-12-07] MEDS ORDERED: HYDROmorphone 1 MG/ML CARPUJECT IVP PRN (09:28)
--- NOTE | 2020-12-07 09:29 | MRI Report ---
PROCEDURE: Lumbar Spine W/WO INDICATIONS: Severe back pain. Metastatic cancer. CONTRAST: IV CONTRAST: Gadavist ml: 9 TECHNIQUE: Noncontrast sagittal T1 spin echo and T2 fast spin echo, sagittal STIR, axial T1 and T2 fast spin ech o through the lumbar spine. In cases with scoliosis, additional coronal T2 fast spin echo may be per formed. After the administration of contrast, sagittal and axial T1 spin echo with fat saturation th rough the lumbar spine. COMPARISON: None. FINDINGS: Image quality: Excellent. Alignment and curvature: There is normal bony alignment. Marrow: The L1 marrow demonstrates edema and nondisplaced compression fracture. The L1 vertebral body also demonstrates heterogenous post gadolinium enhancement suspicious for metastasis. The remaining vertebral bodies demonstrate normal fatty marrow. Multiple sclerotic foci are seen throughout the tho racic and lumbar vertebral bodies. Spinal cord: Conus medullaris terminates at the T12-L1 level. Visualized spinal cord demonstrates n ormal signal, without suspicious enhancement. No significant central canal stenosis. Paraspinous soft tissues: No paravertebral masses or abnormal enhancement. T12-L1: No significant disc bulge. No foraminal or central canal stenosis. L1-L2: No significant disc bulge. No foraminal or central canal stenosis. L2-L3: No significant disc bulge. No foraminal or central canal stenosis. L3-L4: Mild diffuse disc bulge with no significant foraminal or central canal stenosis. L4-L5: Mild diffuse disc bulge with no significant foraminal or central canal stenosis. L5-S1: Mild diffuse disc bulge with no significant foraminal or central canal stenosis. IMPRESSION: 1. Multifocal suspected osseous metastatic disease especially involving the L1 vertebral body. 2. No foraminal or central canal stenosis. 3. Note that if there is severe pain at the L1 vertebral body, this would be a candidate for vertebro plasty. If desired please consider referring to interventional radiology. Reviewed by: Howard Roach on 12/07/2020 9:28 AM PDT Approved by: Howard Roach on 12/07/2020 9:28 AM PDT Station ID: [id number]
[2020-12-07] MEDS ORDERED: GADOBUTROL 10 MMOL/10 ML VIAL IVP ONE (09:39)
--- NOTE | 2020-12-07 10:28 | PHARMACY PROGRESS NOTE ---
- Best Possible Medication History Admit Date and Time: 12/07/20 0047 Processed by: Pharmacy Medication History completed: Yes Patient Interview: Completed Secondary Source(s): Physician records, Pharmacy records, Insurance records (PATIENT INTERVIEWED BY PHARMACY. PATIENT ABLE TO CONFIRM HOME MEDICATIONS.) As the person ultimately responsible for medication therapy, providers are able to order a medication from an existing home medication list in [facility] via the "Reconcile Routine" prior to Confirmation of that medication by direct support worker. Such practice is discouraged except when the physician, in their clinical judgment, deems that a medical need exists for a medication without regard to previous use.
[2020-12-07 13:48] VITALS: BP 111/56
--- NOTE | 2020-12-07 15:16 | Discharge Plan ---
Discharge Plan Problem Reviewed?: Yes Disposition: Home, Self Care Condition: Fair Prescriptions: oxyCODONE [Roxicodone] 10 mg PO Q4HR PRN #30 tablet PRN Reason: Pain 8 to 10 Diet: Regular Activity Restrictions: Activity as Tolerated Shower Restrictions: No Driving Restrictions: Yes (no driving) Assistance Devices: [facility] Concerns: You have been having back pain for several months and it increased in such severity in the last two weeks that you came to the emergency room December 05. CT of the abdomen and pelvis revealed that you have likely metastatic cancer that may have started in your lungs and has gone to the liver, adrenal gland, and the bones of your spine and pelvis. You were sent home with some pain medicine and to see your primary care provider but the pain was so severe you had to return to the emergency room. We have given you pain medicine in the form of oxycodone that it is helping. We also did an MRI of the spine and you do have erosion of lumbar body number 1 and multiple lesions of the spine. I have discussed your case with your primary care provider, Dr. Huertas, and he will see you in follow-up. Plan of Treatment: 1. You will need a biopsy of one of the lesions so that we can get a pathology diagnosis. 2. Once you have a biopsy, then we can calculate what type of radiation to do to your spine. 3. You and Dr. Huertas, with your son, will discuss how far you undergo in treatment. Care Goals: To control your pain enough to move forward with treatment. You had already picked up a bottle of immediate release morphine from your pharmacist the first time. It was not controlling your pain. You feel that oxycodone controls her pain better and as such a new prescription was called in for oxycodone. Assessment: Patient understands care goals. I have discussed the case with her hamlet r-in-law and son. No Smoking: If you smoke, Please STOP! Call for help. Follow-up with: Eric Huertas MD [Primary Care Provider] -
--- NOTE | 2020-12-07 15:57 | DISCHARGE SUMMARY ---
"Discharge Summary Admit Date: 12/07/20 Discharge Date: 12/07/20 Discharging Provider: Conchis Urias MD Condition at Discharge: Fair Discharge Disposition: 01 Home, Self Care - DIAGNOSES Discharge Diagnoses with Status of Each Condition: 1. Severe lumbar back pain, acute 2. Metastatic cancer, unknown primary 3. Autoimmune hepatitis 4. Chronic pancytopenia 5. Moderate dementia - HPI History of Present Illness: This is a very pleasant 75-year-old female with a past medical history significant for autoimmune hepatitis who presents today complaining of worsening back pain. She states that been present for the past few months but has progressed over the past month and even more so over the past 2 weeks where she has had limited to her physical activity due to the severity of her pain. It is an 8 out of 10 and located over the right lower back. She reports occasional numbness in both of her feet. She states her pain is relieved by standing straight but is worse with any movement. She denies any urinary or bowel symptoms. She reports no dysuria, urgency, frequency. She was seen in the emergency department yesterday for similar symptoms and she underwent a CT of the abdomen and pelvis which was concerning for metastatic disease with involvem ent of the liver, adrenal gland, and a sclerotic lesion in the left pelvis. She was discharged on morphine and decadron. She states despite taking the medication, she still has significant pain and her son encouraged her to come back to the emergency department today because of its severity. She also reports today she was nauseous and had 3-4 episodes of nonbloody emesis. She denies any abdominal pain. Her son tells me that she has had limited p.o. intake over the past 3 days due to no appetite. She denies any weight loss, cough. She did smoke a pack a day for about 20 years but quit over 15 years ago. She has a sister who had lung cancer and she was also a smoker. In the emergency department, she received multiple doses of IV Dilaudid but despite this, she is still in significant pain and is unable to ambulate whatsoever. Given the above findings, medicine was consulted for admission. I did discuss goals of care with the patient and her son who who is her power of construction code administrator. She would like to be a DNR. History - Past Medical History Respiratory: reports: None Neuro: reports: Dementia Endocrine/Autoimmune: reports: None GI: reports: Hepatitis (Autoimmune.) MRSA Hx?: No - Past Surgical History Ortho: reports: ACL reconstruction - CONSULTS | PROCEDURES Procedures: 1. Chest x-ray with scattered subsegmental scarring and atelectasis no acute consolidation 2. Head CT with no acute intracranial disease process 3. Lumbar spine MRI with lumbar 1 marrow demonstrating edema and nondisplaced compression fracture. The L1 vertebral body demonstrates heterogeneous post gadolinium enhancement suspicious for metastasis. Multiple sclerotic foci seen throughout the thoracic and lumbar vertebral bodies. Visualized spinal cord demonstrates normal signal, without suspicion Saleh. - HOSPITAL COURSE Hospital Course: The patient was placed in observation status due to her back pain being unresponsive to the immediate release morphine that was prescribed the day before. It is unclear if she took it once you speak to her. She does not remember picking it up, she does not remember her son picking it up. But the pharmacist does state that it was picked up. In any case her pain was then treated with oxycodone, Tylenol, and a nonsteroidal while here and it became 50% better. She still has pain that is an 8 out of a 10 if she moves but can be brought down to a 4 out of a 10 with her medication. The MRI was done with results as above. I discussed the case with Maverick Butler MD, oncology from [facility]. Obtaining pathology will be the most important thing we do next for this patient. The argument could be made to do a biopsy of the liver but she has autoimmune hepatitis and she may be at risk for bleeding because of that. As such would be the lung lesion, or lumbar spine lesion that could be biopsied. This is important because then it will determine what type of radiation and how much radiation to give to the spine to relieve her pain. I have also discussed the case with her primary care provider's office, Dr. Eric Huertas. The patient will need to call his office and get referred for that biopsy with interventional radiology and then immediately referred to oncology. She is discharged in stable condition but still with significant pain if she moves too much. Temperature is 36.4, pulse of 71, blood pressure 111/56. Respirations 18. 96% on room air. She is 5 feet 6 inches and weighs 90 kg. She is alert, oriented to person place and time. Between this morning and this afternoon is much sleepier because of the opiates use. I have warned her to make sure that she has someone at her house 04/03. Neck is supple. Lungs have diminished breath sounds but are clear to auscultation and percussion with no increased respiratory effort. PMI is normally placed with a regular rate and rhythm and a soft systolic ejection murmur. The abdomen is soft, hypoactive bowel sounds, nontender, no distention. You can feel hard liver edge underneath the right upper rib cage. Extremities have trace edema. She does need standby assist to get from a supine to a sitting position. Standby assist to get to the bathroom and off the toilet. - ALLERGIES Allergies/Adverse Reactions: Allergies Allergy/AdvReac Type Severity Reaction Status Date / Time No Known Drug Allergies Allergy Verified 12/06/20 19:46 - MEDICATIONS Home Medications: Ambulatory Orders Medication Instructions Recorded Confirmed azaTHIOprine [Azathioprine] 100 mg PO DAILY 04/10/16 12/07/20 traZODone [Desyrel] 50 mg PO QPM 12/05/20 12/07/20 oxyCODONE [Roxicodone] 10 mg PO Q4HR PRN #30 tablet 12/07/20 - LABS Result Diagrams: 12/07/20 05:37 12/07/20 05:37"
== END 2020-12-07 16:45 | disposition home or self-care (01) ==
LOC: ED 19:28 → MS2 12-07 00:47
PROVIDERS: ADMIT Internal Medicine; ATTEND Specialist
DX: G89.3 Neoplasm related pain (acute) (chronic) (principal); C79.51 Secondary malignant neoplasm of bone; C79.70 Secondary malignant neoplasm of unspecified adrenal gland; C78.7 Secondary malignant neoplasm of liver and intrahepatic bile duct; K75.4 Autoimmune hepatitis; D61.818 Other pancytopenia; F03.90 Unspecified dementia, unspecified severity, without behavioral disturbance, psychotic disturbance, mood disturbance, and anxiety; Z87.891 Personal history of nicotine dependence; Z66 Do not resuscitate
CPT/HCPCS: 36415; 70450; 71045; 72158; 80048; 80053; 83690; 84484; 85025; 93005; 96372; 96374; 96375; 96376; 99284; 99285; A9270; A9585; G0378; J1170; J1650

== ENCOUNTER 2020-12-22 10:00 | Outpatient (CLI) | payer MEDICARE, OTHER ==
--- NOTE | 2020-12-22 17:31 | CONSULTATION NOTE ---
Palliative Care Consultation - Referral Referring Provider: Dr. Eric Huertas Time of Visit: Referral setting: Home Referral Reason: Pain of neoplastic origin/Met CA of unknown primary/FTT - Information Sources Records reviewed: Previous records reviewed History/Review of Systems obtained from: Patient, Family (daughter Josi, son Basilio (DPROLANDO) ILDEFONSO Landa) Exam limitations: Clinical condition (patient with mild confusion; lethargy) - History of Present Illness Brief History of Present Illness: This is a 75-year-old woman who presented to the emergency room related to escalating back pain. She has a past medical history of about 7 years of autoimmune hepatitis, family had attributed to worsening right upper quadrant pain as it does radiate through abdomen. She had been complaining of this over the last few months and now has escalated, she was evaluated the emergency room underwent a CT scan of the abdomen pelvis that showed metastatic disease of unknown primary with multiple pulmonary nodules at lung bases, right hilar lymph node 2.8 x 1.7, multiple hypodense hepatic lesions, intra aortic caval r etroperitoneal bulky adenopathy, right adrenal mass measuring 3.9 x 3.3 cm, sclerotic osseous foci in pelvis suspicious for metastatic disease, and on lumbar spine found at L1 nondisplaced compression fracture, with suspicious for mets as well. Multiple sclerotic foci were also seen throughout the thoracic and lumbar vertebral bodies. Patient's underlying health conditions include dementia, which has worsened over the last year, she has needed more frequent cueing and oversight, her son and his were providing support and doing her finances for her. Unfortunate over the last week she continues to decline, with decreased intake, worsening functional status, pain is been escalating, she has been using oxycodone, and over the last 24 hours his needed oxycodone 20 mg about 2 tabs every 2 hours, with pain only moderately controlled. Patient does present with grimacing, is able to weight-bear and ambulate, she is quite lethargic and drifts off to sleep easily but can engage in conversation. Family ports she did have hallucinations and was having more difficulty last night. She also complained of a severe dry mouth and difficulty swallowing, on examination has severe candidiasis. Patient had been put on Decadron for several days from the ED, currently is been only taking oxycodone. When asked patient what her understanding of her diseases, she understands she has cancer, that is terminal, and she just wants to be at home. And expressing her wishes this is consistent with her previous advance care directives, did discuss with family further work-up, patient might be a candidate for radiation therapy for pain relief, but patient would need to go through biopsy, oncology appointments, at this point patient does appear to be rapidly declining. After review of goals, agreement is to focus on comfort, recognizing patient most likely has weeks, and transition to hospice team. Medical/Surgical History - Past Medical History Cardiovascular: reports: Hypertension Respiratory: reports: None Neuro: Dementia (worsening over this last year; recorded in md note slums 2019) Endocrine/Autoimmune: reports: None GI: reports: Hepatitis (autoimmunine x 7 years) : reports: None HEENT: reports: Chronic hearing loss Psych: reports: Depression Musculoskeletal: reports: Osteopenia, Chronic back pain, Other (l1 fx) Derm: reports: None MRSA Hx?: No - Past Surgical History General: reports: Other (fundoplication) Ortho: reports: ACL reconstruction - Substance History Use: Uses substance without health or social issues: Tobacco (quit 15 years ago) Social History - Living Situation Living arrangement: At home Living Situation: Alone Support System: Patient's son Basilio lives here in town, he is still trying to continue to work. She moved up here 12 years ago to be closer to him and his . She is half [place] . 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 She does have grandchildren, she is 1 of 10 siblings, 3 are left to live. 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 She lost her second 15 years ago, their father early in their lives, but he about 7 or 8 years ago.They do recognize at this point she cannot be left alone, she does need 24/7 care, Syeda will be moving in with her that her [id number] with hope to be supported both by hospice as well as some respite from friends. Family History - Family History Family History: Mother: (old age 86; father fishing accident), Father: , Sister: Alive and Well (had 10 siblilngs 3 left; heart attack brother/2 others with dementia), Brother: Alive and Well Medications/Allergies - Medications Home Medications: Ambulatory Orders Medication Instructions Recorded Confirmed azaTHIOprine [Azathioprine] 100 mg PO DAILY 04/10/16 12/22/20 traZODone [Desyrel] 50 mg PO QPM 12/05/20 12/22/20 Fluconazole [Diflucan] 100 mg PO DAILY 12/22/20 12/22/20 Methadone [Methadone Hcl] 10 mg PO BID 12/22/20 12/22/20 Senna [Senokot] 2 tab PO TID 12/22/20 12/22/20 oxyCODONE [Roxicodone] 20 mg PO .Q2 PRN 12/22/20 12/22/20 - Allergies Allergies/Adverse Reactions: Allergies Allergy/AdvReac Type Severity Reaction Status Date / Time No Known Drug Allergies Allergy Verified 12/09/20 09:44 Review of Systems - Constitutional Constitutional: reports: Fatigue (persistent worsening), Weakness, Poor appetite (very little food for several days having difficulty swallowing), Weight loss - Eyes Eyes: reports: Vision loss - Ears, Nose & Throat Ears, Nose & Throat: reports: Hearing loss, Mouth lesions (tongue with white patches; painful throat), Dry mouth - Cardiovascular Cardiovascular: reports: Edema, Lightheadedness, Exertional dyspnea, Decr. exercise tolerance - Respiratory Respiratory: reports: SOB with exertion. denies: SOB at rest - Gastrointestinal Gastrointestinal: reports: Constipation (did have bowel movement yesterday), Poor appetite - Musculoskeletal Musculoskeletal: reports: Back pain, Muscle aches, Stiffness, Muscle weakness, Joint pain, Assistive devices (uses walker) - Integumentary Integumentary: reports: Dryness - Neurological Neurological: reports: General weakness, Dizziness, Memory problems (worsening), Abnormal gait, Slurred speech - Psychiatric Psychiatric: reports: Depression, Anxiety, Hallucinations (for last few days) - Endocrine Endocrine: reports: Intolerance to cold - Hematologic/Lymphatic Hematologic/Lymph: reports: Anemia - All Other Systems All Other Systems: reports: Other (limited ROS with memory) Physical Exam - Vital Signs Temperature: 97.3 C Pulse Rate: 77 Respiratory Rate: 18 O2 Saturation: 94 (ra @ rest) Blood Pressure: 108/52 - Physical Exam General Appearance: positive: Mild distress (difficulty with sitting; grimacing and pain behaviors), Lethargic Eyes Bilateral: positive: Other (periorbital edema) ENT: positive: Pharyngeal erythema, Oral lesions (tongue coated with candidiasis), Dry mucous membranes Neck: positive: Trachea midline Cardiovascular: positive: Regular rate & rhythm Respiratory: positive: No respiratory distress, Diminished in bases. negative: Wheezes, Rales, Rhonchi Abdomen: positive: Soft, Nml bowel sounds, Tenderness, Obese Skin: positive: Jaundice (slight sallow/yellow hue), Pallor, Dryness, Bruising, Wound (second degree burn on back from heating pad; 2 x 3 cm with white eschar- does appear to be healing) Extremities: positive: Pedal edema (up to kneew 1-2 +) Neurologic/Psychiatric: positive: Disoriented to time, Weakness, Slurred/abnml speech, Depressed mood/affect, Flat affect Palliative Care - POLST Patient has POLST: Yes POLST Status: DNR, Comfort Measures (completed with son; patient requesting be ing at home and comfort measures; consistent with expressed wishes in [facility] Directive) Pain: Pain worsening, Location (L1 area; radiating around to abdominal area; oxycodone 20 mg every 2 hours; lasting only about 1 1/2 hours) Tiredness/Fatigue: Severe (7-10) Drowsiness/Sedation: Severe (7-10) Nausea: Mild (1-3) Anorexia: Severe (7-10) Dyspnea: Moderate (4-6) Depression: Moderate (4-6) Anxiety: Mild (1-3) Feelings of wellbeing/Perceived Quality of Life: Poor, Worsening Sleep: Variable sleep pattern (related to pain and hallucinations) Constipation: Yes, Opoid induced Performance Status: Patient's functional status is declined over the last several weeks related to her worsening pain, she is ambulatory with a walker, but is having more difficulty in sitting from standing. She has not had any recent falls. They will need assistance with bathing.This past September she was still driving. - Palliative Care Discussion: Patient is quite lethargic, though still having significant pain. Did review her understanding, despite her dementia she is able to engage in conversation, though she does drift off as we are talking. She is very hard of hearing. She does understand she has cancer and that it is terminal, she reports she is not afraid. She is in agreement for just focusing on comfort and getting her pain better control. Son is quite overwhelmed, this is been fairly significant change of events, and her decline has been rapid. They do want to keep her as comfortable as possible, do not want her suffering prolonged. He does need to continue to work his Syeda will step in and be primary caregiver. Cassidy has been with her this week. There are multiple grandchildren, encouraged to come and visit. Patient does have directives that focus on comfort focused care, patient is quite clear she wants to at home. Her family is committed to having this happen, counseling provided regarding the continuum of care, I did introduce further work-up through oncology and it was declined, will continue to transition to hospice. Counseling provided regarding this, and urgent referral put in. Impression and Recommendations - Palliative Care Impression: This is an unfortunate 75-year-old woman who recently was diagnosed with metastatic cancer unknown primary, with liver, adrenal, bone, and pulmonary mets. Patient with escalating pain, declining functional status, decreased oral intake and presenting with failure to thrive. Palliative care meeting with family regarding goals of care, decision was made to transition to hospice and comfort focused care Recommendations/Counseling Done: 1. Pain of neoplastic origin. Patient is getting high doses of opioids, about 200 mg of oxycodone last 24 hours with very poor control, and experiencing hallucinations and increased lethargy. Counseling provided regarding transition to methadone, family in agreement. Call to hospice medical imaging tech as will be handing off to hospice, equal analgesic dosing most likely around 60 mg of methadone, will start at 20, 10 mg twice daily, 5 mg tablets were ordered, will start this evening. Counseling provided regarding long-acting pain meds which should be her methadone, and continue to use the oxycodone for breakthrough pain and record so able to titrate medication. 2. Oral candidiasis. Patient is too lethargic to do is nystatin, will go ahead and order one-time dose of Diflucan 100 mg, can repeat if needed through hospice in 2 to 3 days. 3. Weight loss. This is multifactorial, including oral candidiasis, they are getting fluids in her, encouraging Ensure, counseling provided regarding balancing encouraging intake for comfort, recognizing patient will continue to decline and this is part of the normal dying process. Patient though may improve if pain better controlled, switch to methadone, and Christina treated. We will continue to evaluate. 4. Second-degree long on back. Area cleansed with normal saline, Mepilex applied. Does appear to be healing without any signs or symptoms of infection, this was due to heating pad. 5. Constipation. They have been using 100 mg of DOS with every 2 oxycodone, patient did have a large bowel movement yesterday. Instructed to stop the DOS, and start senna 8.6 mg 2 tabs 3 times a day. 6. Advanced care planning. Patient does have dementia, but was able to participate in conversation as far as understanding of disease process goals to focus on comfort, does understand her status is terminal did share with her we are transition to hospice. Counseling provided to family regarding goals of care, completed POLST/DNR/DNI with comfort focused care. Encouraged to put on the refrigerator, patient staffed with medical hospice admitting clerk, and referral made. 75 minutes with greater than 50% of this done in counseling regarding the continuum of care, goals of care, pain and symptom management, coordination of care with hospice team and P [facility]
== END 2020-12-22 10:01 | disposition home or self-care (01) ==
LOC: PC 10:00
PROVIDERS: ATTEND Nurse Practitioner Adult Health
DX: Z51.5 Encounter for palliative care (principal); G89.3 Neoplasm related pain (acute) (chronic); M54.9 Dorsalgia, unspecified; C80.1 Malignant (primary) neoplasm, unspecified; C78.7 Secondary malignant neoplasm of liver and intrahepatic bile duct; C79.70 Secondary malignant neoplasm of unspecified adrenal gland; C79.51 Secondary malignant neoplasm of bone; C78.00 Secondary malignant neoplasm of unspecified lung; B37.0 Candidal stomatitis; R63.4 Abnormal weight loss; T21.24XA Burn of second degree of lower back, initial encounter; K59.00 Constipation, unspecified; Z66 Do not resuscitate
CPT/HCPCS: 99345